=== PATIENT | female | born 1965 | race African-American/Black ===

== ENCOUNTER 2017-02-13 09:31 | Emergency (ER) | payer OTHER ==
[~2017-02-13] VITALS: Ht 162.6 cm; Wt 104.0 kg
[~2017-02-13 09:31] MED LIST: GABA-529 PO; LISI-662 PO; TYL3 PO
[2017-02-13] MEDS ORDERED: SULFAMETHOX/TRIMETH DS 800-160 MG/TABLET PO ONE (10:30)
[2017-02-13] MEDS ORDERED: MUPIROCIN CALCIUM 2% 22 GM OINTMENT TP ONE (10:30)
[2017-02-13 10:50] VITALS: BP 160/82
== END 2017-02-13 11:01 | disposition home or self-care (01) ==
LOC: EMS 09:32
DX: N61.0 Mastitis without abscess (principal); S21.002A Unspecified open wound of left breast, initial encounter; I10 Essential (primary) hypertension; F17.210 Nicotine dependence, cigarettes, uncomplicated; Z88.0 Allergy status to penicillin; Z88.1 Allergy status to other antibiotic agents
CPT/HCPCS: 87070; 87205; 99284; 99406

== ENCOUNTER 2018-07-20 12:43 | Emergency (ER) | payer OTHER ==
[~2018-07-20] VITALS: Ht 165.1 cm; Wt 118.2 kg
[2018-07-20] MEDS ORDERED: BACLOFEN 10 MG TABLET PO ONE (13:15)
[2018-07-20] MEDS ORDERED: KETOROLAC TROMETHAMINE 60 MG/2 ML VIAL IM ONE (13:15)
[2018-07-20 14:07] VITALS: BP 142/76
== END 2018-07-20 14:19 | disposition home or self-care (01) ==
LOC: EMS 12:44
DX: M54.5 Low back pain (principal); I10 Essential (primary) hypertension; F17.210 Nicotine dependence, cigarettes, uncomplicated; Z88.0 Allergy status to penicillin; Z88.1 Allergy status to other antibiotic agents
CPT/HCPCS: 96372; 99283; 99406; J1885

== ENCOUNTER 2019-11-08 20:00 | Inpatient (IN) | payer OTHER ==
[~2019-11-08] VITALS: Ht 162.6 cm; Wt 111.6 kg
[~2019-11-08 20:00] MED LIST changes: +GABA-1216 PO; -GABA-529 PO
[2019-11-08] MEDS ORDERED: ACETAMINOPHEN 500 MG TABLET PO ONE ×2 (20:45→22:30)
[2019-11-08] MEDS ORDERED: SODIUM CHLORIDE 0.9% 1,000 ML IV ONE ×3 (20:45→23:45)
[2019-11-08 21:15] LABS: BASOPHILS % (AUTO) 0.6 % (0.0-2.0); EOSINOPHILS % (AUTO) 0 % (1.0-6.0); HEMATOCRIT 41.2 % (36-46); HEMOGLOBIN 13.4 g/dL (12.0-16.0); LYMPHOCYTES # (AUTO) 2.9 K/uL (1.0-4.8); LYMPHOCYTES % (AUTO) 13.2 % (22.0-44.0); MEAN CORPUSCULAR HEMOGLOBIN 28.3 pg (26.0-34.0); MEAN CORPUSCULAR HGB CONC 32.6 G/dL (31.0-37.0); MEAN CORPUSCULAR VOLUME 87 fL (80-100); MONOCYTES # (AUTO) 1.2 K/uL (0.1-1.0); MONOCYTES % (AUTO) 5.4 % (2.0-9.0); NEUTROPHILS # (AUTO) 17.5 K/uL (1.8-7.7); NEUTROPHILS % (AUTO) 80.8 % (40.0-70.0); PLATELET COUNT (AUTO) 259 K/uL (150-450); RED BLOOD CELL COUNT(AUTO) 4.74 MIL/uL (4.00-5.20); RED CELL DISTRIBUTION WIDTH 13.3 % (11.5-14.5)
[2019-11-08 21:17] LABS: BILIRUBIN,TOTAL 0.7 mg/dL (0.1-1.0); CALCIUM, TOTAL 9.5 mg/dL (8.8-10.5); CREATININE 2.39 mg/dL (0.60-1.30); TOTAL PROTEIN, SERUM 7.9 g/dL (6.4-8.2)
[2019-11-08 21:20] LABS: POTASSIUM 2.9 mmol/L (3.5-5.1)
[2019-11-08] MEDS ORDERED: SODIUM CHLORIDE 0.9% 2,200 ML IV ONE (22:15)
[2019-11-08] MEDS ORDERED: CEFEPIME HCL 1 GM in DEXTROSE 5%-WATER 50 ML IV ONE (22:15)
[2019-11-08] MEDS ORDERED: VANCOMYCIN HCL 1 GM/D5% WATER 200 ML IV ONE (22:15)
[2019-11-08] MEDS ORDERED: POTASSIUM CHLORIDE 20 MEQ ER TABLET PO ONE (22:15)
[2019-11-08 23:00] LABS: C-REACTIVE PROTEIN QUANT 27.99 mg/dL (0.00-0.30)
[2019-11-08 23:06] LABS: APPEARANCE,URINE TURBID (CLEAR); GLUCOSE, URINE (UA) NEGATIVE (NEGATIVE); KETONES,URINE NEGATIVE (NEGATIVE); LEUKOCYTE ESTERASE ,URINE LARGE (NEGATIVE); NITRATE,URINE POSITIVE (NEGATIVE); OCCULT BLOOD,URINE LARGE (NEGATIVE); PH,URINE 5.5 (5.0-8.0); PROTEIN,URINE SEE CONFIRM (NEGATIVE)
[2019-11-08 23:08] LABS: BILIRUBIN,URINE PRELIM. POSITIVE (NEGATIVE)
[2019-11-08 23:13] LABS: SULFOSALICYLIC ACID,URINE 4+ (Negative)
[2019-11-08 23:14] LABS: BACTERIA,URINE Many /HPF (None Seen); SQUAMOUS EPITHELIAL CELL,UR Moderate /LPF (None Seen); WBC,URINE >100 /HPF (0-5)
[2019-11-08 23:26] LABS: AMPHET/METH SCREEN,URINE NEGATIVE (NEGATIVE); BARBITURATE SCREEN, URINE NEGATIVE (NEGATIVE); BENZODIAZEPINES SCREEN,URINE NEGATIVE (NEGATIVE); CANNABINOID SCREEN,URINE NEGATIVE (NEGATIVE); COCAINE SCREEN,URINE NEGATIVE (NEGATIVE); METHADONE SCREEN, URINE NEGATIVE (NEGATIVE); OPIATE SCREEN,URINE NEGATIVE (NEGATIVE)
[2019-11-08 23:27] LABS: PHENCYCLIDINE SCREEN,URINE NEGATIVE (NEGATIVE)
[2019-11-08 23:41] LABS: ERYTHROCYTE SEDIMENTATION RATE 96 MM/HR (0-20)
[2019-11-08] MEDS ORDERED: *CLINICAL-LEVOFLOXACIN IVPB DOSING CLINICAL ONE (23:45)
[2019-11-08] MEDS ORDERED: ACETAMINOPHEN 325 MG TABLET PO PRN ×2 (23:45)
[2019-11-08] MEDS ORDERED: HYDROCODONE/ACETAMINOPHEN 5-325 MG TABLET PO PRN (23:45)
[2019-11-08] MEDS ORDERED: BISACODYL 10 MG RECTAL RECTAL SUPPOSITORY PR PRN (23:45)
[2019-11-08] MEDS ORDERED: ONDANSETRON HCL 4 MG/2 ML VIAL IVP PRN ×2 (23:45)
[2019-11-08] MEDS ORDERED: 0.9% SODIUM CHLORIDE 10 ML SYRINGE IVP PRN (23:45)
[2019-11-08] MEDS ORDERED: POTASSIUM CHLORIDE 10% 40 MEQ/30 ML LIQUID UDCUP PO ONE (23:45)
[2019-11-08] MEDS ORDERED: MAGNESIUM HYDROXIDE SUSPENSION 30 ML UDCUP PO PRN (23:45)
[2019-11-08] MEDS ORDERED: ZOLPIDEM TARTRATE 5 MG TABLET PO PRN (23:45)
[2019-11-09 00:34] LABS: D-DIMER 2.89 mg/L FEU (0.00-0.50)
[2019-11-09] MEDS: HEPARIN SODIUM,PORCINE 5,000 UNITS/ML VIAL SQ SCH ×3 (00:37→16:00)
[2019-11-09] MEDS ORDERED: LEVOFLOXACIN 750 MG/D5% WATER 150 ML IV SCH ×2 (04:00)
[2019-11-09 07:26] LABS: BASOPHILS % (AUTO) 0.1 % (0.0-2.0); EOSINOPHILS % (AUTO) 0 % (1.0-6.0); HEMATOCRIT 38.9 % (36-46); HEMOGLOBIN 12.3 g/dL (12.0-16.0); LYMPHOCYTES # (AUTO) 2.7 K/uL (1.0-4.8); MEAN CORPUSCULAR HEMOGLOBIN 27.8 pg (26.0-34.0); MEAN CORPUSCULAR HGB CONC 31.6 G/dL (31.0-37.0); MEAN CORPUSCULAR VOLUME 88 fL (80-100); MONOCYTES % (AUTO) 5.5 % (2.0-9.0); NEUTROPHILS # (AUTO) 14.3 K/uL (1.8-7.7); NEUTROPHILS % (AUTO) 79.4 % (40.0-70.0); PLATELET COUNT (AUTO) 245 K/uL (150-450); RED BLOOD CELL COUNT(AUTO) 4.43 MIL/uL (4.00-5.20); RED CELL DISTRIBUTION WIDTH 13.3 % (11.5-14.5)
[2019-11-09 07:39] LABS: CALCIUM, TOTAL 8.3 mg/dL (8.8-10.5); CREATININE 2.12 mg/dL (0.60-1.30); POTASSIUM 3.5 mmol/L (3.5-5.1)
[2019-11-09 08:00] VITALS: BP 148/98
[2019-11-09] MEDS: DOCUSATE SODIUM 100 MG CAPSULE PO SCH ×2 (08:40→20:50)
[2019-11-09] MEDS: PANTOPRAZOLE SODIUM 40 MG DR TABLET PO SCH (08:41)
[2019-11-09] MEDS: GABAPENTIN 100 MG CAPSULE PO SCH (09:00)
[2019-11-09] MEDS ORDERED: AmLODIPine BESYLATE 10 MG TABLET PO SCH (09:00)
[2019-11-09 10:43] LABS: INR 1.1 (0.9-1.1); PROTHROMBIN TIME 11.6 SEC (9.4-11.6)
[2019-11-09 12:00] VITALS: BP 110/63
[2019-11-09] MEDS ORDERED: MIDAZOLAM HCL 2 MG/2 ML VIAL ONE (14:52)
[2019-11-09] MEDS ORDERED: FentaNYL CITRATE-PF 100 MCG/2 ML VIAL ONE (14:52)
[2019-11-09] MEDS ORDERED: NALOXONE HCL 0.4 MG/ML VIAL ONE (14:52)
[2019-11-09] MEDS ORDERED: FLUMAZENIL 0.1 MG/ML 5 ML VIAL IVP ONE (14:52)
[2019-11-09] MEDS ORDERED: IOHEXOL 300 MG/ML 50 ML VIAL ONE (15:16)
[2019-11-09] MEDS ORDERED: LIDOCAINE/PF 1% 30 ML VIAL ONE (15:17)
[2019-11-09] MEDS ORDERED: SODIUM CHLORIDE 0.9% 250 ML IV ONE (16:00)
[2019-11-09] MEDS ORDERED: FentaNYL CITRATE-PF 100 MCG/2 ML VIAL IVP ONE ×2 (16:11→16:28)
[2019-11-09] MEDS ORDERED: MIDAZOLAM HCL 2 MG/2 ML VIAL IVP ONE ×2 (16:12→16:29)
[2019-11-09] MEDS: MORPHINE SULFATE 2 MG/ML SYRINGE IVP PRN (18:25)
[2019-11-09] MEDS ORDERED: ZOLPIDEM TARTRATE 10 MG TABLET PO PRN (20:42)
[2019-11-09 20:51] VITALS: BP 110/58
[2019-11-09 22:17] VITALS: BP 107/66
[2019-11-10 00:37] VITALS: BP 103/66
[2019-11-10] MEDS: HEPARIN SODIUM,PORCINE 5,000 UNITS/ML VIAL SQ SCH ×2 (00:48→08:00)
[2019-11-10] MEDS: MORPHINE SULFATE 2 MG/ML SYRINGE IVP PRN (03:34)
[2019-11-10 04:09] VITALS: BP 111/72
[2019-11-10 07:57] VITALS: BP 101/70
[2019-11-10] MEDS: PANTOPRAZOLE SODIUM 40 MG DR TABLET PO SCH (08:02)
[2019-11-10] MEDS: GABAPENTIN 100 MG CAPSULE PO SCH (08:02)
[2019-11-10] MEDS: DOCUSATE SODIUM 100 MG CAPSULE PO SCH (08:02)
[2019-11-10 08:47] LABS: BASOPHILS % (AUTO) 0.4 % (0.0-2.0); EOSINOPHILS % (AUTO) 0.2 % (1.0-6.0); HEMATOCRIT 36.1 % (36-46); HEMOGLOBIN 11.9 g/dL (12.0-16.0); LYMPHOCYTES # (AUTO) 2.1 K/uL (1.0-4.8); LYMPHOCYTES % (AUTO) 26.1 % (22.0-44.0); MEAN CORPUSCULAR HEMOGLOBIN 28.9 pg (26.0-34.0); MEAN CORPUSCULAR HGB CONC 32.9 G/dL (31.0-37.0); MEAN CORPUSCULAR VOLUME 88 fL (80-100); MONOCYTES # (AUTO) 0.5 K/uL (0.1-1.0); MONOCYTES % (AUTO) 5.8 % (2.0-9.0); NEUTROPHILS # (AUTO) 5.4 K/uL (1.8-7.7); NEUTROPHILS % (AUTO) 67.5 % (40.0-70.0); PLATELET COUNT (AUTO) 250 K/uL (150-450); RED BLOOD CELL COUNT(AUTO) 4.11 MIL/uL (4.00-5.20); RED CELL DISTRIBUTION WIDTH 13.3 % (11.5-14.5)
[2019-11-10 08:55] LABS: CALCIUM, TOTAL 8.5 mg/dL (8.8-10.5); CREATININE 1.41 mg/dL (0.60-1.30); POTASSIUM 3.3 mmol/L (3.5-5.1)
[2019-11-10 12:00] VITALS: BP 105/74
[2019-11-10] MEDS ORDERED: LEVOFLOXACIN 750 MG/D5% WATER 150 ML IV SCH (16:00)
== END 2019-11-10 16:05 | disposition left against medical advice (07) | DRG 720 ==
LOC: EMS 20:00 → ICU 23:36 → 5S 11-09 21:50
PROVIDERS: ADMIT Internal Medicine; ATTEND Internal Medicine
PROC: 0T9030Z Drainage of Right Kidney with Drainage Device, Percutaneous Approach (ICD-10-PCS; principal; 2019-11-09)
DX: A41.9 Sepsis, unspecified organism (principal); E87.6 Hypokalemia; N17.9 Acute kidney failure, unspecified; N18.9 Chronic kidney disease, unspecified; I95.9 Hypotension, unspecified; I12.9 Hypertensive chronic kidney disease with stage 1 through stage 4 chronic kidney disease, or unspecified chronic kidney disease; E66.01 Morbid (severe) obesity due to excess calories; F17.210 Nicotine dependence, cigarettes, uncomplicated; N13.6 Pyonephrosis; Z20.828 Contact with and (suspected) exposure to other viral communicable diseases; Z88.0 Allergy status to penicillin; Z90.721 Acquired absence of ovaries, unilateral; Z90.710 Acquired absence of both cervix and uterus; Z90.49 Acquired absence of other specified parts of digestive tract; Z68.41 Body mass index [BMI] 40.0-44.9, adult
CPT/HCPCS: 36245; 50430; 71250; 72192; 74150; 82728; 83605; 83615; 85379; 85384; 85651; 86140; 87040; 87070; 87081; 87086; 87205; 87426; 93005; 99291; G0378; J0692; J1644; J1956; J2250; J2270; J2310; J2405; J3010; J3370; J3490; J7030; J7060; Q9967; 36415-L1; 36415-TC; 71045-TC